=== PATIENT | male | born 1950 | race Caucasian/White ===

== ENCOUNTER → 2017-02-01 | Outpatient (CLI) | payer MEDICARE, BC | END | disposition disaster alternative care site (69) | LOC: GRAD 14:00 | DX: M54.5 Low back pain (principal); Z85.72 Personal history of non-Hodgkin lymphomas; Z85.528 Personal history of other malignant neoplasm of kidney; Z85.820 Personal history of malignant melanoma of skin; Z85.89 Personal history of malignant neoplasm of other organs and systems ==

== ENCOUNTER → 2017-02-09 | Outpatient (CLI) | payer MEDICARE, BC ==
[2017-02-09 13:26] LABS: CREATININE 1.5 mg/dL (0.6-1.3)
== END | disposition disaster alternative care site (69) ==
LOC: GRAD 12:35 → GLAB 13:00 → GRAD 14:00
PROVIDERS: Registered Nurse Medical-Surgical
DX: C43.9 Malignant melanoma of skin, unspecified (principal); M54.5 Low back pain; Z85.528 Personal history of other malignant neoplasm of kidney; M89.9 Disorder of bone, unspecified; E27.9 Disorder of adrenal gland, unspecified
CPT/HCPCS: A9577

== ENCOUNTER → 2017-02-17 | Outpatient (CLI) | payer MEDICARE, BC | END | disposition disaster alternative care site (69) | LOC: GRAD 15:46 | DX: R10.9 Unspecified abdominal pain (principal); C79.51 Secondary malignant neoplasm of bone; E27.8 Other specified disorders of adrenal gland; K76.9 Liver disease, unspecified; K80.20 Calculus of gallbladder without cholecystitis without obstruction; N40.0 Benign prostatic hyperplasia without lower urinary tract symptoms; I70.90 Unspecified atherosclerosis; R91.8 Other nonspecific abnormal finding of lung field; Z90.5 Acquired absence of kidney; Z85.528 Personal history of other malignant neoplasm of kidney; Z85.820 Personal history of malignant melanoma of skin; Z85.72 Personal history of non-Hodgkin lymphomas ==